=== PATIENT | female | born 1940 | race Caucasian/White ===

== ENCOUNTER 2019-02-07 22:17 | Inpatient (IN) | payer MEDICARE ==
[~2019-02-07] VITALS: Ht 142.2 cm; Wt 70.8 kg
[2019-02-07] MEDS ORDERED: ALBUTEROL FS 2.5 MG/3 ML VIAL.NEB NEB ONE (22:30)
[2019-02-07] MEDS ORDERED: IV NS 0.9% 500 ML BAG IV ONE (22:30)
[2019-02-07] MEDS ORDERED: IPRATROPIUM NEB FS 0.5 MG/2.5 ML AMPUL.NEB NEB ONE (22:30)
[2019-02-07 22:43] LABS: BASOPHILS % (AUTO) 0.5 % (0.0-2.0); EOSINOPHILS % (AUTO) 0.2 % (0.0-6.0); HEMATOCRIT 40 % (33-45); HEMOGLOBIN 13.2 g/dL (11.5-14.8); LYMPHOCYTES # (AUTO) 1.4 /CMM (0.8-4.8); LYMPHOCYTES % (AUTO) 16.6 % (20.0-44.0); MEAN CORPUSCULAR HGB CONC 33 g/dl (31.0-36.0); MEAN CORPUSCULAR VOLUME 92 fL (82-100); MONOCYTES # (AUTO) 1.6 /CMM (0.1-1.30); MONOCYTES % (AUTO) 19.2 % (2.0-12.0); NEUTROPHILS # (AUTO) 5.4 /CMM (1.8-8.9); NEUTROPHILS % (AUTO) 63.5 % (43.0-81.0); PLATELET COUNT (AUTO) 248 /CMM (150-450); WHITE BLOOD COUNT (AUTO) 8.5 K/uL (4.3-11.0)
--- NOTE | 2019-02-07 22:45 | NUR ---
end time for ns: [id number]
[2019-02-07 22:53] LABS: CALCIUM, SERUM 9.7 mg/dL (8.5-10.1); CREATININE 0.8 mg/dL (0.6-1.3)
[2019-02-07] MEDS ORDERED: ALBUTEROL FS 2.5 MG/3 ML VIAL.NEB ONE (22:56)
[2019-02-07] MEDS ORDERED: IPRATROPIUM NEB FS 0.5 MG/2.5 ML AMPUL.NEB ONE (22:56)
[2019-02-07] MEDS ORDERED: ALBUTEROL FS 2.5 MG/0.5 ML VIAL.NEB NEB ONE (23:30)
[2019-02-07] MEDS ORDERED: methylPREDNISolone SOD SUCC 125 MG/2ML VIAL IV ONE (23:30)
[2019-02-07 23:53] LABS: LYMPHOCYTES % (MANUAL) 12 % (16-48); MONOCYTES % (MANUAL) 16 % (0-11.0); NEUTROPHILS % (MANUAL) 72 (42-76)
[2019-02-08] MEDS ORDERED: VANCOMYCIN HCL 1.25 GM in IV D5W 260 ML IV ONE ×2
[2019-02-08] MEDS ORDERED: PIPERACILLIN /TAZOBACTAM 3.375 G in IV D5W 50 ML IV ONE ×2
[2019-02-08] MEDS ORDERED: VANCOMYCIN 1 GM VIAL ONE (00:13)
[2019-02-08] MEDS ORDERED: PIPERACILLIN /TAZOBACTAM 3.375 G VIAL IV ONE (00:13)
--- NOTE | 2019-02-08 00:44 | NUR ---
report given to marty bird.
[2019-02-08] MEDS ORDERED: ALBU1.257 NEB (00:47)
[2019-02-08] MEDS ORDERED: AZITHROMYCIN 250 MG TABLET PO ONE (01:00)
[2019-02-08] MEDS ORDERED: ACETAMINOPHEN 325 MG TABLET PO PRN (01:00)
[2019-02-08] MEDS ORDERED: ZOLPIDEM TARTRATE 5 MG TABLET PO PRN (01:00)
[2019-02-08] MEDS ORDERED: Z GUARD REMEDY 2 OZ OINT TP PRN (01:00)
[2019-02-08] MEDS ORDERED: ONDANSETRON HCL/PF 4 MG/2 ML VIAL IVP PRN (01:00)
[2019-02-08] MEDS ORDERED: HYDROCODONE/APAP 5/325MG 1 EACH TABLET PO PRN (01:00)
[2019-02-08] MEDS ORDERED: MAGNESIUM HYDROXIDE 30 ML UDC PO PRN (01:00)
[2019-02-08] MEDS ORDERED: MAG HYDROX/AL HYDROX/SIMETH 30 ML UDC PO PRN (01:00)
[2019-02-08] MEDS ORDERED: VANCOMYCIN HCL 1 GM in IV D5W 260 ML IV ONE (01:00)
[2019-02-08] MEDS ORDERED: IV NS 0.9% 1,000 ML IV ONE (01:00)
--- NOTE | 2019-02-08 01:15 | NUR ---
PT WAS TRANSFERRED TO THIRD FLOOR IN STABLE CONDITION,
--- NOTE | 2019-02-08 01:15 | NUR ---
MS RN NOTE PT ARRIVED TO FLOOR VIA GURNEY ACCOMPANIED BY ER STAFF, PT WALKED FROM DOOR TO BED WITH STEADY GAIT. PT A/O X4 , NO SIGNS OF SOB OR DISTRESS, NO C/O OF PAIN, CHEST PAIN, OR N/V. IV IN LFA #20 WITH IVF INFUSING, TOLERATING WELL. ALL CURRENT NEEDS ATTENDED TO. BED LOW, LOCKED, UPPER RAILS UP, AND CALL LIGHT WITHIN REACH. WILL CONT. TO MONITOR. ALL BELONGINGS ACCOUNTED AND SIGNED FOR, BODY ASSESSED. MD AWARE OF PT ARRIVAL TO FLOOR.
[2019-02-08] MEDS ORDERED: CEFTRIAXONE 1 G VIAL ONE (01:24)
[2019-02-08 01:30] VITALS: BP 117/79
[2019-02-08] MEDS: CEFTRIAXONE 1 G in IV D5W 50 ML IV SCH (01:33)
[2019-02-08 02:23] VITALS: BP 117/79
[2019-02-08] MEDS ORDERED: ALBUTEROL HALF STRENGTH 1.25 MG/3 ML VIAL.NEB NEB SCH (06:00)
--- NOTE | 2019-02-08 06:07 | NUR ---
MS RN NOTE PT REMAINS IN STABLE CONDITION A/O X4, CURRENTLY RESTING. NO SIGNS OF SOB OR DISTRESS, NO C/O OF PAIN, CHEST PAIN, OR N/V. IV IN LFA #20 WITH IVF INFUSING, TOLERATING WELL. ALL CURRENT NEEDS ATTENDED TO. BED LOW, LOCKED, UPPER RAILS UP, AND CALL LIGHT WITHIN REACH AND ENDORSE TO NEXT SHIFT FOR JOSSIE.
--- NOTE | 2019-02-08 07:16 | NUR ---
RN OPENING NOTE PT WAS RECEIVED ASLEEP IN BED AT THIS TIME WITH SIDE RAILS UP X2, A/O X3 BREATHING EVEN AND UNLABORED VIA 2L ON NC, NO S/S OF ANY DISTRESS OR PAIN AT THIS TIME, IV IS PATENT AND INTACT WITH IVF RUNNING, SAFETY PRECAUTIONS IN PLACE, CALL LIGHT IN REACH, WILL MONITOR ACCORDINGLY
[2019-02-08] MEDS: ALBUTEROL HALF STRENGTH 1.25 MG/3 ML VIAL.NEB NEB SCH ×3 (07:39→19:41)
[2019-02-08 08:00] VITALS: BP 107/48
[2019-02-08 16:00] VITALS: BP 130/58
--- NOTE | 2019-02-08 18:27 | NUR ---
RN CLOSING NOTE PT IN BED AT THIS TIME WITH SIDE RAILS UP X2, A/O X3 MALTESE SPEAKING BREATHING EVEN AND UNLABORED WITH NO DISTRESS OR PAIN, IV IS PATENT AND INTACT WITH IVF RUNNING, SAFETY PRECAUTIONS IN PLACE, CALL LIGHT IN REACH, ALL NEEDS ATTENDED TO THROUGHOUT SHIFT, WILL ENDORSE TO NIGHT RN FOR JOSSIE.
--- NOTE | 2019-02-08 19:00 | NUR ---
MS RN NOTE RECEIVED PT IN STABLE CONDITION A/O X 4, CZECH SPEAKING. CURRENTLY WATCHING TV. NO SIGNS OF SOB OR DISTRESS, NO CHEST PAIN OR N/V NOTED. IV IN L FA #[address] WITH IVF INFUSING, TOLERATING WELL. ALL CURRENT NEEDS ATTENDED TO. BED LOW, LOCKED, UPPER RAILS UP AND CALL LIGHT WITHIN REACH. WILL CONT. TO MONITOR.
[2019-02-08 20:00] VITALS: BP 136/59
[2019-02-09] MEDS: CEFTRIAXONE 1 G in IV D5W 50 ML IV SCH (00:39)
[2019-02-09] MEDS: AZITHROMYCIN 250 MG TABLET PO SCH (00:40)
[2019-02-09] MEDS: ALBUTEROL HALF STRENGTH 1.25 MG/3 ML VIAL.NEB NEB SCH ×4 (00:53→20:08)
--- NOTE | 2019-02-09 06:15 | NUR ---
MS RN NOTE PT REMAINS IN STABLE CONDITION A/O X 4, MACEDON[place] SPEAKING. CURRENTLY RESTING IN BED. NO SIGNS OF SOB OR DISTRESS, NO CHEST PAIN OR N/V NOTED. IV IN L FA #[address] WITH IVF INFUSING, TOLERATING WELL. ALL CURRENT NEEDS ATTENDED TO. BED LOW, LOCKED, UPPER RAILS UP AND CALL LIGHT WITHIN REACH. WILL CONT. TO MONITOR AND ENDORSE TO NEXT SHIFT FOR JOSSIE
[2019-02-09 07:08] LABS: BASOPHILS % (AUTO) 0.2 % (0.0-2.0); EOSINOPHILS % (AUTO) 0.1 % (0.0-6.0); HEMATOCRIT 39 % (33-45); HEMOGLOBIN 12.6 g/dL (11.5-14.8); LYMPHOCYTES % (AUTO) 8.6 % (20.0-44.0); MEAN CORPUSCULAR HGB CONC 32 g/dl (31.0-36.0); MEAN CORPUSCULAR VOLUME 92 fL (82-100); MONOCYTES # (AUTO) 1.2 /CMM (0.1-1.30); MONOCYTES % (AUTO) 10.7 % (2.0-12.0); NEUTROPHILS # (AUTO) 9.3 /CMM (1.8-8.9); NEUTROPHILS % (AUTO) 80.4 % (43.0-81.0); PLATELET COUNT (AUTO) 254 /CMM (150-450); RED BLOOD CELL COUNT(AUTO) 4.26 MIL/uL (4.0-5.2); WHITE BLOOD COUNT (AUTO) 11.6 K/uL (4.3-11.0)
--- NOTE | 2019-02-09 07:36 | NUR ---
MS RN OPENING NOTES RECEIVED PATIENT SITTING AT EDGE OF BED. NO SOB. DENIES ANY C/O PAIN NOR DISCOMFORT. LEFT FA # 20 SL INTACT AND PATENT WITHOUT S/S OF COMPLICATIONS. BED IN LOWEST POSITION, LOCKED. AMBULATORY WITH STEADY GAIT. BED SIDERAILS UP X2. CALL LIGHT WITHIN REACH.
[2019-02-09 07:48] LABS: CALCIUM, SERUM 9.9 mg/dL (8.5-10.1); CREATININE 0.8 mg/dL (0.6-1.3); MAGNESIUM 2.2 mg/dL (1.8-2.4); PHOSPHORUS 3.6 mg/dL (2.5-4.9); POTASSIUM 4.6 mmol/L (3.5-5.1)
[2019-02-09 08:00] VITALS: BP 124/80
[2019-02-09 16:00] VITALS: BP 123/75
[2019-02-09] MEDS ORDERED: GUAIFENESIN/D-METHORPHAN HB 5 ML UDC PO PRN (17:00)
--- NOTE | 2019-02-09 17:52 | NUR ---
Patient speaks Yoruba only. She is alert and pleasant. She resides at her Boss house in [place]. She is ambulatory and independent with adl's and driving. Her Boss Ale Brown is very involved with plan of care and supportive. Current dc plan is to return home. Addendum: 02/09/19 at 1752 by SHAYY RAMIREZ RN Amended: Links added.
--- NOTE | 2019-02-09 18:41 | NUR ---
MS RN CLOSING NOTES PATIENT RESTING COMFORTABLY IN BED. NO SOB. HOB ELEVATED. STILL WITH ON AND OFF COUGH. LEFT FA SL # 20 INTACT AND PATENT WITHOUT S/S OF COMPLICATIONS. BED IN LOWEST POSITION, LOCKED. BED SIDERAILS UP X2. CALL LIGHT WITHIN REACH. IN NO APPARENT DISTRESS.
--- NOTE | 2019-02-09 19:29 | NUR ---
MS RN OPENING NOTE RECEIVED PATIENT IN BED. A/O X4. ON OXYGEN 2L/MIN VIA NASAL CANNULA. RESPIRATIONS ARE EVEN AND UNLABORED. NO S/S SOB NOTE . DENIES PAIN AT THIS TIME. IN NO APPARENT DISTRESS. IV ACCESS IN LFA #20 PATENT AND SALINE LOCKED. BED IS LOW AND LOCKED, HOB 20 DEGREES, SIDE RAILS UP X2, BED ALARM ON. ELLY LIGHT WITHIN REACH. WILL CONTINUE TO MONITOR.
[2019-02-09 20:00] VITALS: BP 152/67
[2019-02-10] MEDS: CEFTRIAXONE 1 G in IV D5W 50 ML IV SCH (00:08)
[2019-02-10] MEDS: AZITHROMYCIN 250 MG TABLET PO SCH (00:10)
[2019-02-10] MEDS: ALBUTEROL HALF STRENGTH 1.25 MG/3 ML VIAL.NEB NEB SCH ×3 (01:59→14:08)
--- NOTE | 2019-02-10 06:26 | NUR ---
MS RN CLOSING NOTE PATIENT IN BED. A/O X4. REMAINS ON OXYGEN 2L/MIN VIA NASAL CANNULA. RESPIRATIONS ARE EVEN AND UNLABORED. NO SOB NOTE . NO C/O PAIN THROUGHOUT SHIFT. NO DISTRESS. IV ACCESS MAINTAINED IN LFA #20 PATENT AND SALINE LOCKED. BED REMAINS LOW AND LOCKED, HOB 20 DEGREES, SIDE RAILS UP X2, BED ALARM ON. CALL LIGHT WITHIN REACH. WILL ENDORSE TO NEXT SHIFT.
--- NOTE | 2019-02-10 08:00 | NUR ---
MS RN OPENING NOTES Received Patient asleep and resting in bed. VS stable with no acute distress. Breathing even and unlabored on 2LPM via NC with no respiratory distress. Denies pain. No signs and symptoms of pain. 20g PIV on LFA clean, intact, patent and flushing well. Safety precautions in place. Bed locked and set to lowest position with side rails x 2 up. All needs rendered at this time. Call light within reach. Will continue to monitor.
[2019-02-10 10:00] VITALS: BP 128/60
--- NOTE | 2019-02-10 15:40 | NUR ---
MS LEAD MASSAGE THERAPIST NOTES Patient discharged for home at this time. Patient in stable condition. VS stable with no acute distress. Breathing even and unlabored on room air with no respiratory distress. Denies pain. No signs and symptoms of pain. Removed intact 20g PIV from LFA clean and intact. Skin intact. Medication reconciliation and discharge orders reviewed and explained to Patient. Patient verbalized understanding. All belongings with Patient. Patient will follow up with PCP. Escorted Patient to the Lobby for safety. Patient picked up by housemateAle.
== END 2019-02-10 15:35 | disposition home or self-care (01) | DRG 193 ==
LOC: ER 22:20 → MED 02-08 00:32
PROVIDERS: ADMIT Nurse Practitioner Acute Care; ATTEND Nurse Practitioner Acute Care
DX: J15.9 Unspecified bacterial pneumonia (principal); N17.0 Acute kidney failure with tubular necrosis; I50.33 Acute on chronic diastolic (congestive) heart failure; I11.0 Hypertensive heart disease with heart failure; D72.829 Elevated white blood cell count, unspecified
CPT/HCPCS: 36415; 71045-TC; 80048-TC; 80061-TC; 83735-TC; 84100-TC; 85025-TC; 87040-TC; 87081-TC; 94799-TC; 97116-TC; 97530-TC; G0378; J0696; J2405; J2543; J2930; J3370; J7030; J7040; J7050; J7060

== ENCOUNTER → 2019-02-13 | Emergency (ER) | payer MEDICARE ==
[~2019-02-13] VITALS: Ht 149.9 cm; Wt 67.1 kg
[~2019-02-13] MED LIST: ALBU1.257 NEB; ASPIRIN EC 325 MG TABLET.DR PO ONE
--- NOTE | 2019-02-13 11:25 | NUR ---
Pt bibra99 from home, weak since yesterday, patient states "i fell last night in the bathroom, hit my head, -ko" BS 95 recently d/c due to PNA. Pt alert and confused, vss, breathing even and unlabored on room air w/ nad. Pt connected to the monitor and pox. IV Line established LW 20 G
[2019-02-13] MEDS: IV NS 0.9% 500 ML BAG IV ONE (11:36)
--- NOTE | 2019-02-13 11:37 | NUR ---
SENIOR APPLICATION SOFTWARE ENGINEER AT BEDSIDE FOR BLOOD DRAW
--- NOTE | 2019-02-13 11:38 | NUR ---
XRAY AT BEDSIDE
[2019-02-13 11:53] LABS: BASOPHILS % (AUTO) 0.6 % (0.0-2.0); EOSINOPHILS % (AUTO) 0.5 % (0.0-6.0); HEMATOCRIT 43 % (33-45); HEMOGLOBIN 14.1 g/dL (11.5-14.8); LYMPHOCYTES # (AUTO) 1.2 /CMM (0.8-4.8); LYMPHOCYTES % (AUTO) 13.4 % (20.0-44.0); MEAN CORPUSCULAR HGB CONC 33 g/dl (31.0-36.0); MEAN CORPUSCULAR VOLUME 91 fL (82-100); MONOCYTES # (AUTO) 0.6 /CMM (0.1-1.30); MONOCYTES % (AUTO) 6.2 % (2.0-12.0); NEUTROPHILS % (AUTO) 79.3 % (43.0-81.0); PLATELET COUNT (AUTO) 343 /CMM (150-450); RED BLOOD CELL COUNT(AUTO) 4.69 MIL/uL (4.0-5.2); WHITE BLOOD COUNT (AUTO) 8.9 K/uL (4.3-11.0)
[2019-02-13 12:15] LABS: ALANINE AMINOTRANSFERASE 52 U/L (12-78); ALKALINE PHOSPHATASE 99 U/L (46-116); ASPARTATE AMINOTRANSFERASE 43 U/L (15-37); BILIRUBIN,DIRECT 0.1 mg/dL (0.0-0.2); BILIRUBIN,TOTAL 0.5 mg/dL (0.2-1.0); CALCIUM, SERUM 9.7 mg/dL (8.5-10.1); CARBON DIOXIDE 34 mmol/L (21-32); CHLORIDE 102 mmol/L (98-107); CREATININE 0.7 mg/dL (0.6-1.3); GLUCOSE 107 mg/dL (74-106); POTASSIUM 3.4 mmol/L (3.5-5.1); SODIUM SERUM 143 mmol/L (136-145); TOTAL PROTEIN, SERUM 7.3 g/dL (6.4-8.2); UREA NITROGEN, BLOOD 13 mg/dL (7-18)
--- NOTE | 2019-02-13 12:34 | NUR ---
called [facility] for stat CT scan of the head per MD ordered.
--- NOTE | 2019-02-13 12:35 | NUR ---
PT AMBULATED TO THE RESTROOM. URINE COLLECTED AND SENT TO LAB
--- NOTE | 2019-02-13 12:41 | NUR ---
PT TAKEN TO CT
--- NOTE | 2019-02-13 12:46 | NUR ---
PT BACK FROM CT
[2019-02-13 12:53] LABS: APPEARANCE,URINE Clear (CLEAR); BILIRUBIN,URINE Negative (NEGATIVE); BLOOD, URINE Small Ery/uL (NEGATIVE); COLOR,URINE Yellow (YELLOW); KETONES,URINE Trace (NEGATIVE); LEUKOCYTE ESTERASE ,URINE Negative (NEGATIVE); NITRITE, URINE Negative (NEGATIVE); PH,URINE 7.5 (5.0-8.0); PROTEIN,URINE Negative (NEGATIVE); UGLUCOSE Negative (NEGATIVE); UROBILINOGEN,URINE 0.2 EU/dL (0.2)
[2019-02-13 13:01] LABS: BACTERIA,URINE Rare /HPF (None Seen); RBC,URINE 0-2 /HPF (0-2); SQUAMOUS EPITHELIAL CELL,UR Few /HPF (None Seen); WBC,URINE 0-2 /HPF (0-3)
--- NOTE | 2019-02-13 13:17 | NUR ---
[facility] was called again, waiting for Dr. Jerome to call back
--- NOTE | 2019-02-13 13:34 | NUR ---
called dr. ambika Aj speaking to dr carrillo
--- NOTE | 2019-02-13 13:40 | NUR ---
KRISTIAN [phone] RP
[2019-02-13] MEDS: ASPIRIN EC 325 MG TABLET.DR PO ONE (13:44)
--- NOTE | 2019-02-13 13:45 | NUR ---
Castillo watson in ED - 02/13/19 at 1419 by ADRIAN REPEAT EKG AT BEDSIDE FOR STROKE
--- NOTE | 2019-02-13 13:45 | NUR ---
REPEAT EKG AT BEDSIDE
--- NOTE | 2019-02-13 13:49 | NUR ---
dr. carrillo speaking to DINA HODGE from [facility]
--- NOTE | 2019-02-13 14:18 | NUR ---
Castillo watson in [facility] - 02/13/19 at 1419 by ERIN REPORT GIVEN TO REINA ALEXIS FROM [facility]
--- NOTE | 2019-02-13 14:19 | NUR ---
REPORT GIVEN TO REINA ALEXIS
--- NOTE | 2019-02-13 14:36 | NUR ---
Patient is resting comfortably in bed with eyes closed. Easily aroused. VSS
--- NOTE | 2019-02-13 14:57 | NUR ---
Per Facundo from [facility], ETA is 17:30 for ALS transport. No ticket # given
--- NOTE | 2019-02-13 14:59 | NUR ---
Patient is resting comfortably in bed with eyes closed. Easily aroused. VSS
--- NOTE | 2019-02-13 17:04 | NUR ---
Patient is resting comfortably in bed with eyes closed. Easily aroused. VSS
[2019-02-13 17:52] VITALS: BP 119/50
--- NOTE | 2019-02-13 18:42 | NUR ---
REPORT GIVEN [facility]. PT TRANSPORTED VIA ACLS PROTOCOL. PT IN STABLE CONDITION FOR TRANSFER
== END ==
LOC: ER 11:14
DX: I21.4 Non-ST elevation (NSTEMI) myocardial infarction (principal); R53.1 Weakness; R51 Headache; Z79.899 Other long term (current) drug therapy
CPT/HCPCS: 36415; 70450; 71045; 80048; 80076; 81001; 83605 ×2; 84145; 84484; 85025; 85730; 87040 ×2; 87086; 93005 ×2; 99291; 99292; J7030; 81000-TC